=== PATIENT | female | born 1965 ===

== ENCOUNTER 2024-06-20 05:55 | Day surgery (SDC) | payer BC, SELFPAY ==
[2024-06-20] VITALS (13 sets, daily range): BP systolic 122–174; BP diastolic 74–112; PULSE 64–73; RESP 15–94; TEMP 36.1–36.5; O2SAT 93–99; BMI 32.3
--- NOTE | 2024-06-20 02:15 | W.PM.OPSFHP ---
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 had 1-2 days of spotting in April pelvic sono done showed thickened endometrium now scheduled for hysteroscopy, endometrial sampling, possible endometrial polypectomy Medications/Allergies* Home Medications Medication Instructions Recorded Confirmed Type tirzepatide 2.5 mg/0.5 mL 2.5 mg SUBCUT .WEEKLY 05/06/24 05/06/24 History subcutaneous pen injector (Mounjaro) Allergies/Adverse Reactions Allergy/AdvReac Type Severity Reaction Status Date / Time tetanus immune globulin Allergy Unknown Unknown Verified 05/06/24 09:03 meperidine [From Demerol] Allergy ADR-Vomitin Verified 06/19/24 11:20 g Pertinent History/Comorbid Conditions* Family History (Updated 05/06/24 @ 09:11 by Gosia Torres LPN) Diabetes Father Hypercholesteremia Father Hypertension Father Stroke Grandmother Denies family history of Colon cancer Ovarian cancer Prostate cancer Heart disease Breast cancer Uterine cancer Thyroid disease Pertinent Exam Findings alert, oriented x 3, clear to auscultation bilaterally and regular rate & rhythm Recommendations Surgery/Procedure today Coding Level of Care Code Acute Code for Chg Fwd Time Spent (min) 20
[2024-06-20] MEDS: sodium chloride 0.9% 1,000 ML 30 ML IV (06:13)
[2024-06-20 06:33] LABS: Glucose Point of Care 128 mg/dL (70-110)
[2024-06-20] MEDS: scopolamine 1.5 Patch 1 PATCH TRANSDERMA (06:38)
--- NOTE | 2024-06-20 06:49 | W.PM.OPSUD ---
Surgery/Procedure H&P Update DATE OF PROCEDURE: June 20, 2024 DATE H&P PERFORMED: 06/20/24 H&P UPDATE INFORMATION: I have reviewed H&P completed within last 30 days, I have examined patient prior to procedure and No changes to prior documentation PREOP DIAGNOSIS: abnormal uterine bleeding PLANNED PROCEDURE: Operation Date: 06/20/24 07:00 Proposed Procedures p Hysteroscopy Hysteroscopy w/ Endometrial Sampling, Possible Endometrial Polypectomy 51626, N95.0(Not Applicable) - Vasquez Piedra MD
--- NOTE | 2024-06-20 07:30 | P.ANESASSM_ITS ---
Pre-Anesthetic Assessment Height/Weight: Height 1.68 m Weight 90.718 kg Temp Pulse Resp BP Pulse Ox O2 Del Method 97.0 F L 73 18 174/112 97 Room Air 06/20/24 06:08 06/20/24 06:08 06/20/24 06:08 06/20/24 06:08 06/20/24 06:08 06/20/24 06:09 Preop Diagnosis: abnormal uterine bleeding Operation Date: 06/20/24 07:00 Proposed Procedures p Hysteroscopy Hysteroscopy w/ Endometrial Sampling, Possible Endometrial Polypectomy 53760, N95.0(Not Applicable) - Vasquez Piedra MD Was Beta Ej taken within 24 hours: N/A Was Clonidine taken within 24 hours: N/A Last intake: Intake Last Liquid Date 06/19/24 Last Liquid Time 22:00 Last Solid Date 06/19/24 Last Solid Time 20:00 Social No alcohol and No tobacco Exam alert, oriented x 3, clear to auscultation bilaterally and regular rate & rhythm Airway Submandibular: within normal limits Cervical ROM: within normal limits Mallampati: Class II Dentition: full History/ROS No significant history except as noted and No significant complaints Pulmonary None reported CV/HEM None reported None reported Hepatic None reported GI None reported Metabolic Morbid Obesity [facility] [place] None reported Neuropsych None reported Anesthetic Plan ASA status: 2 Anesthesia: Anesthesia Evaluation and General Risk of > 500 ml blood loss (7ml/kg in children): No Medications/Allergies Home Medications Medication Instructions Recorded Confirmed Last Taken Type tirzepatide 2.5 mg/0.5 mL 2.5 mg SUBCUT .WEEKLY 05/06/24 06/20/24 06/07/24 History subcutaneous pen injector (Mounjaro) Allergies Allergy/AdvReac Type Severity Reaction Status Date / Time tetanus immune globulin Allergy Unknown Unknown Verified 05/06/24 09:03 meperidine [From Demerol] Allergy ADR-Vomitin Verified 06/19/24 11:20 g Current Medications Generic Name Dose Route Start Last Admin Trade Name Freq PRN Reason Stop Dose Admin Sodium Chloride 1,000 mls @ 30 mls/hr 06/20/24 06:00 06/20/24 06:13 Sodium Chloride 0.9% IV 06/21/24 05:59 30 mls/hr .Q24H TIMA Administration PFSH Anesthesia Family History Father Hypertension Diabetes Hypercholesteremia Grandmother Stroke Denies family history of Colon cancer Ovarian cancer Prostate cancer Heart disease Breast cancer Uterine cancer Thyroid disease Data Anesthesia Cardiac Studies: No Data to Display
--- NOTE | 2024-06-20 08:35 | P.OP_ITS ---
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 which showed a thickened endometrium Procedure: Informed consent signed. Patient was taken to the operating room. Anesthesia was induced. Patient was placed in dorsolithotomy position, prepped and draped for hysteroscopy. A bivalve speculum was placed in the vagina. The anterior lip of the cervix was grasped with a sharp-toothed tenaculum. The cervix was serially dilated with Hegar dilators. . A hysteroscope was placed into the endometrial cavity. The endometrial cavity was seen have two 3 cm polyps. There was moderate endometrial tissue. A Myosure was then inserted and the polyps were removed. Endometrial tissue was also sent to pathology. The endometrial cavity was seen to be intact. The hysteroscope and Myosure were then removed. Endometrial tissue was sent to pathology. The sharp-toothed tenaculum was removed. There was no bleeding from the endometrial cavity or cervix. The patient was then placed supine and awakened and taken to the PACU. Postop condition: stable EBL: none Sponge and instruments counts were normal x 2 Complications: none
--- NOTE | 2024-06-20 09:20 | ANE.PACU2 ---
Inpatient post-anesthesia follow up: Airway intact: Yes Vital signs: Temperature 97.7 F Pulse Rate 67 Respiratory Rate 94 Blood Pressure 149/94 Pulse Oximetry 94 Oxygen Delivery Me thod Room Air Oxygen Flow Rate Fraction of Inspir ed Oxygen Hydration adequate: Yes Nausea and vomiting: No Pain level: 1 Mental status: Baseline
[2024-06-25 14:56] LABS: Mismatch Repari Proteins-IHC See Report
== END 2024-06-20 09:20 | disposition home or self-care (01) ==
PROVIDERS: PCP Nurse Practitioner Family; Visit Provider Obstetrics & Gynecology
PROC: 0UJD8ZZ Inspection of Uterus and Cervix, Via Natural or Artificial Opening Endoscopic (ICD-10-PCS; CPT 58555; principal; 2024-06-20 07:00)
DX: N93.9 Abnormal uterine and vaginal bleeding, unspecified (principal)
CPT/HCPCS: 58558; 36416; 82962; 88305; 88341; 88342; J1100; J1200; J2405; J2704; J3010; J7030